=== PATIENT | male | born 1955 ===

== ENCOUNTER 2016-12-14 13:31 | Emergency (ER) | payer OTHER ==
[2016-12-14] MEDS ORDERED: Fluorescein Sodium TOPICAL* 1 MG TEST ONE (15:13)
[2016-12-14] MEDS ORDERED: BSS OPTH.SOL* BTL ONE (15:13)
[2016-12-14] MEDS ORDERED: Tetracaine 0.5% OPTH.SOL 15ML* BTL ONE (15:14)
--- NOTE | 2016-12-14 15:34 | UC ---
Eye Complaint HPI - HPI Summary HPI Summary: While kickboxing last night, felt surface of R eye get scratched. States blow was light, more of a scrape to the eye than anything. Feels/sees scratch, has tearing and light-sensitivity. No visual changes or deficit. Hx of cataract surgeries bilat by Dr. Amador. - History of Current Complaint Chief Complaint: UCEye Stated Complaint: EYE INJURY Time Seen by Provider: 12/14/16 15:11 Hx Obtained From: Patient Onset/Duration: Sudden Onset Timing: Constant Severity Initially: Moderate Severity Currently: Moderate Location of Injury: Globe Character: Foreign Body Sensation Aggravating Factor(s): Light Alleviating Factor(s): Nothing Associated Signs And Symptoms: Positive: Drainage (Clear). Negative: Vision Impairment Bilateral - Risk Factors Penetrating Injury Risk Factor: Negative Globe Rupture Risk Factors: Recent Trauma - Allergies/Home Medications Allergies/Adverse Reactions: Allergies Allergy/AdvReac Type Severity Reaction Status Date / Time No Known Allergies Allergy Verified 06/15/12 13:25 PMH/Surg Hx/FS Hx/Imm Hx Endocrine History Of: Reports: Diabetes Denies: Thyroid Disease Cardiovascular History Of: Reports: Hypertension Denies: Cardiac Disorders Respiratory History Of: Denies: COPD, Asthma GI/ History Of: Denies: Ulcer - Surgical History Surgical History: Yes Surgery Procedure, Year, and Place: 2005 & 2006: cataract surgeries. 207 - Right shoulder reconstruction. left shoulder - Family History Known Family History: Negative: Blood Disorder - Social History Alcohol Use: None Substance Use Type: None Smoking Status (MU): Never Smoked Tobacco Review of Systems Constitutional: Negative Skin: Negative Eyes: Drainage, Eye Redness ENT: Negative Respiratory: Negative Cardiovascular: Negative Gastrointestinal: Negative Genitourinary: Negative Motor: Negative Neurovascular: Negative Musculoskeletal: Negative Neurological: Negative Psychological: Negative All Other Systems Reviewed And Are Negative: Yes Physical Exam Triage Information Reviewed: Yes Appearance: Well-Appearing, Well-Nourished, Pain Distress - mild R eye Vital Signs: Initial Vital Signs Temp 98.7 F 12/14/16 14:35 Pulse 55 12/14/16 14:35 Resp 16 12/14/16 14:35 BP 160/63 12/14/16 14:35 Pulse Ox 100 12/14/16 14:35 Vital Signs Reviewed: Yes Eye Exam: Other - visible defect R cornea, fluoresces under fluorescein. Approx 4mm round area with bright linear uptake in the middle, near the center of cornea. No vitreous flow noted. Eyes: Positive: Conjunctiva Inflamed - bilat, L conjunctival hemorrhage, Other: - pt reports complete resolution of symptoms after instillation of tetracaine ENT Exam: Normal ENT: Positive: Normal ENT inspection, Hearing grossly normal, Pharynx normal Dental Exam: Normal Neck exam: Normal Neck: Positive: Supple, Nontender Respiratory Exam: Normal Respiratory: Positive: Chest non-tender, Lungs clear, Normal breath sounds, No respiratory distress, No accessory muscle use Cardiovascular Exam: Normal Cardiovascular: Positive: RRR, No Murmur Musculoskeletal Exam: Normal Neurological Exam: Normal Psychological Exam: Normal Skin Exam: Normal Eye Complaint Course/Dx - Differential Dx/Diagnosis Provider Diagnoses: R corneal abrasion. L conjunctival hemorrhage Discharge - Discharge Plan Condition: Stable Disposition: HOME Prescriptions: Ciprofloxacin 0.3% OPTH.BRETT* [Cipro 0.3% Opth*] 1 drop RIGHT EYE Q2H #5 ml Patient Education Materials: Corneal Abrasion (ED) Referrals: David Eagle MD [Medical Doctor] - 2 Days Additional Instructions: If you have any significant visual changes, severe eye pain, or otherwise suspect a problem, please go to an emergency department right away.
== END 2016-12-14 15:28 | disposition home or self-care (01) ==
LOC: UCEAST 13:31
DX: S05.01XA Injury of conjunctiva and corneal abrasion without foreign body, right eye, initial encounter (principal); H11.32 Conjunctival hemorrhage, left eye; E11.9 Type 2 diabetes mellitus without complications; I10 Essential (primary) hypertension; W50.4XXA Accidental scratch by another person, initial encounter; Y93.71 Activity, boxing
CPT/HCPCS: 99203; A9270-GY; G0463

== ENCOUNTER 2019-08-30 07:21 | Day surgery (SDC) | payer OTHER ==
[~2019-08-30 07:21] MED LIST: Buffered Lidocaine 1% SYRIN* 1 ML/SYRINGE INTRADERM ONE; Lactated Ringers 1000 ML Bag* 1,000 ML IV SCH
[2019-08-30] MEDS ORDERED: ceFAZolin 2 GM in NS PREMIX(*) 2 GM/100 ML BAG IVPB ONE (07:38)
[2019-08-30] MEDS ORDERED: Propofol* 10 MG/ML 20 ML BTL ONE (08:32)
[2019-08-30] MEDS ORDERED: Midazolam* 1 MG/ML 5 ML VIAL (5 MG) ONE (08:33)
[2019-08-30] MEDS ORDERED: fentaNYL* 50 MCG/ML 2 ML VIAL (100 MCG VIAL) ONE ×2 (08:33→10:10)
[2019-08-30] MEDS ORDERED: Rocuronium* 10 MG/ML VIAL ONE (08:33)
[2019-08-30] MEDS ORDERED: Lidocaine 2% PF * 5 ML VIAL ONE (08:37)
[2019-08-30] MEDS ORDERED: Dexamethasone IV* 4 MG/ML 1 ML (4 MG) ONE (08:42)
[2019-08-30] MEDS ORDERED: Naloxone* 0.4 MG/ML 1 ML VIAL IV PRN (09:17)
[2019-08-30] MEDS ORDERED: Ondansetron INJ* 2 MG/ML VIAL IV PRN (09:17)
[2019-08-30] MEDS: fentaNYL* 50 MCG/ML 2 ML VIAL (100 MCG VIAL) IV PRN ×4 (10:11→10:36)
[2019-08-30] MEDS ORDERED: oxyCODONE/Acetamin 5/325 MG* TAB ONE (10:27)
[2019-08-30] MEDS ORDERED: oxyCODONE TAB* 5 MG TAB ONE (10:27)
[2019-08-30] MEDS ORDERED: HYDROmorphone INJ1* 1 MG/ML SYRINGE ONE (11:04)
[2019-08-30] MEDS: HYDROmorphone INJ1* 1 MG/ML SYRINGE IV PRN ×5 (11:05→11:27)
[2019-08-30] MEDS ORDERED: Bupivacaine 0.5%* 50 ML MDV VIAL ONE (11:34)
[2019-08-30 12:07] VITALS: BP 163/65
--- NOTE | 2019-08-30 20:32 | OP ---
OPERATIVE REPORT: DATE OF OPERATION: 08/30/19 - SDS DATE OF : 55 SURGEON: Saúl Pace MD ANESTHESIOLOGIST: Kyaw Martin MD ANESTHESIA: General. AMBULANCE DRIVER PARAMEDIC: KAITY Mello PRE-OP DIAGNOSIS: Umbilical hernia. POST-OP DIAGNOSIS: Umbilical hernia. OPERATIVE PROCEDURE: Repair of umbilical hernia with mesh, robotic repair. INDICATIONS: Umbilical hernia. Risks of surgery included, but not limited to, bleeding, infection, injury to the bowel or other intraabdominal contents, recurrence of the hernia explained to the patient, who seemed to understand, agreed to the procedure, and all questions were answered. DESCRIPTION OF PROCEDURE: The patient was taken to the operating room and placed supine. Preoperative antibiotics were given. After the successful induction of general endotracheal anesthesia, the abdomen was prepped and draped in sterile fashion. Trocars were placed in the left upper quadrant and in a line down on the left side of the abdomen, two more 8-mm trocars were placed, robotic. The 5-mm trocar, bladeless Optiview that was initially placed was replaced with an 8-mm robotic trocar. The robot was brought in and docked. The peritoneum was taken down from left lateral to medial position and a large lipoma was removed from the umbilical hernia site as well as the sac. Sac was then sutured closed with a running 0 PDS locking suture. The mesh was brought in and sutured up in the anterior abdominal wall using the same 0 PDS locking suture. The peritoneum was closed with a 3-0 V-Loc. Both needles were removed. EBL minimal. Hemostasis was intact. The abdomen was once again scanned. No obvious injuries were noted. He tolerated the procedure well. He was extubated and taken to Recovery in stable condition. [id number]/[facility] #: [id number] MTDD
== END 2019-08-30 13:00 | disposition home or self-care (01) ==
LOC: OR 07:21
PROVIDERS: ATTEND Surgery
DX: K42.9 Umbilical hernia without obstruction or gangrene (principal); E78.5 Hyperlipidemia, unspecified; I25.10 Atherosclerotic heart disease of native coronary artery without angina pectoris; G47.33 Obstructive sleep apnea (adult) (pediatric); N18.9 Chronic kidney disease, unspecified; K21.9 Gastro-esophageal reflux disease without esophagitis; E11.9 Type 2 diabetes mellitus without complications; Z79.4 Long term (current) use of insulin; Z87.891 Personal history of nicotine dependence; I12.9 Hypertensive chronic kidney disease with stage 1 through stage 4 chronic kidney disease, or unspecified chronic kidney disease; I73.00 Raynaud's syndrome without gangrene
CPT/HCPCS: 49652; S2900; A9270-GY; C1781; J0690; J1100; J1170; J2250; J2704; J3010; J3490

== ENCOUNTER 2019-09-24 06:51 | Day surgery (SDC) | payer OTHER ==
--- NOTE | 2019-08-12 10:06 | HP ---
HISTORY AND PHYSICAL: DATE OF ADMISSION/SURGERY: 08/17/19 DATE OF OFFICE VISIT: 08/09/19 ATTENDING SURGEON: Dr. Susan Camacho.* (DICTATED BY ALBERTA GROSS) PROCEDURE: Left wrist carpal tunnel release. CHIEF COMPLAINT: Right wrist numbness and tingling. 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 He has had this trouble on and off for years but recently has got much worse. He does a lot of canoe racing and it bothers him when he is holding his paddle. Also, he is having a lot of trouble sleeping at night because of this problem. He does not recall any specific injury. He does not use braces. The pain ranges from 2 to 8/10 at its worst at night. He has been able to continue working. He has been diabetic for several years, the right bothers him more than the left and he would like to proceed with surgery starting with the right wrist. PAST MEDICAL HISTORY: Type 2 diabetes, chronic kidney disease, hypertension, Raynaud's, GERD, obstructive sleep apnea, hyperlipidemia, arthrosclerosis. PAST SURGICAL HISTORY: Bilateral rotator cuff repair. No known issues with anesthesia. MEDICATIONS: 1. Atorvastatin calcium 20 mg 1 p.o. daily. 2. Citalopram hydrobromide 40 mg 1 p.o. daily. 3. Doxazosin mesylate 2 mg 3 by mouth daily. 4. Lantus 100 units/mL 30 units sq at bedtime. 5. Humalog KwikPen 100 units/mL subcu as needed. 6. Modafinil 100 mg 1-1/2 tabs p.o. in the morning. 7. Procardia XL 90 mg 1 p.o. daily. 8. Omeprazole 20 mg 1 p.o. daily. 9. Valsartan hydrochlorothiazide 320/25 mg 1 p.o. daily. ALLERGIES: To BEE STINGS. No known drug allergies. FAMILY HISTORY: Positive for diabetes, coronary artery disease, hypertension, and stroke. Negative for DVT, PE, or any known bleeding or clotting disorders. 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 He lives at home with his spouse. He is a former smoker. He smoked a pack a day x20 years, he quit more than 10 years ago. He denies any recreational drug use. He denies alcohol use. REVIEW OF SYSTEMS: General: Negative for fevers, chills, night sweats, unexplained weight loss or gain. HEENT: Negative for headache, lightheadedness , syncopal episodes, or visual changes. Integumentary: Negative for abrasions , lesions, open wounds, or rashes. Cardiothoracic: Negative for chest pain, palpitations, or edema. Respiratory: Negative for shortness of breath with exertion, chronic cough, or wheezing. GI: Negative for nausea, vomiting, diarrhea, constipation, or GERD symptoms. : Negative for nocturia, urinary frequency, urgency, or previous history of urinary tract infections. Positive for chronic kidney disease. Musculoskeletal: Positive for bilateral wrist numbness and tingling. Negative for chronic or intermittent back pain or history of fractures. Neurologic: Positive for wrist numbness and tingling. Negative for history of seizures, stroke, or poor balance. Negative for anxiety or depression. Endocrine: Positive for diabetes. Negative for thyroid issues. Hematologic: Negative for easy bruising, anemia, bleeding disorders, or history of DVT or PE. ID: Negative for history of MRSA infection. Positive for history of hep C, the patient has completed treatment. Negative for HIV. PHYSICAL EXAMINATION GENERAL: A well-developed, well-nourished 63-year-old male, in no acute distress. Appropriate mood and affect. Appropriate dress and hygiene. VITAL SIGNS: Height 66 inches, weight 150 pounds. Pulse 67, BP 160/60, respirations 14, BMI 24.3. HEENT: Normocephalic, atraumatic. PERRLA. Extraocular movements intact. NECK: Supple. PULMONARY: Lungs are clear to auscultation bilaterally. No wheezes, rales, or rhonchi. CARDIO: Regular rate and rhythm. S1, S2 normal. No murmurs, rubs, or gallops. No edema. ABDOMEN: Positive bowel sounds. Soft and nontender. No organomegaly appreciated. NEUROLOGIC: A and O x3. Cranial nerves II through XII intact. Sensation is intact to light touch distally. Bilateral hands: Skin is intact with no abrasion or open wounds. There is no soft tissue swelling, erythema or bruising. There is no thenar wasting. He can fully flex and extend his fingers. He has some mild obvious degenerative changes in his fingers. He has positive Tinel's sign at both median nerves of the wrist. His thumb abduction strength is good. Neurovascularly intact. IMPRESSION: Bilateral carpal tunnel syndrome. PLAN: The patient is scheduled to undergo a right wrist carpal tunnel release on 08/17/[address] Camacho discussed the procedure as well as the risks and benefits with the patient and he elected to proceed. He will return to the office 10 days postop for followup and suture removal. Prescription for tramadol will be e-scribed to the patient's pharmacy for postoperative pain management with I-STOP being completed before prescribing. ALBERTA BECK [id number]/[facility] #: [id number] MTDD
--- NOTE | 2019-09-20 14:18 | HP ---
AMENDED REPORT NOW INCLUDES DESIGNATED COSIGNER - ESIGNED BEFORE ADJUSTMENTS PREOPERATIVE HISTORY AND PHYSICAL: DATE OF ADMISSION/SURGERY: 09/24/19 DATE OF OFFICE VISIT: 09/15/19 ATTENDING SURGEON: Susan Camacho MD * (DICTATED BY ALBERTA MORENO) PROCEDURE: Right wrist carpal tunnel release. 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 He complains of bilateral numbness and tingling in his hands, right is worse than left. He has had trouble on and off for years, but recently it has gotten much worse. He does a lot of canoe racing and it bothers him when he is holding his paddle. He is also having a lot of trouble sleeping at night because of his symptoms. He does not recall any specific injury. He has been diabetic for several years and also has subsequent kidney disease. He would like to proceed with surgical intervention for the right carpal tunnel at this time. PAST MEDICAL HISTORY: 1. Diabetes mellitus type 2. 2. Hypertension. 3. GERD. 4. Chronic kidney disease. 5. Raynaud's. 6. Obstructive sleep apnea. 7. Hyperlipidemia. 8. Atherosclerosis. PAST SURGICAL HISTORY: 1. Hernia repair. 2. Bilateral shoulder rotator cuff repair. 3. Bilateral cataract removal. No known issues with anesthesia. CURRENT MEDICATIONS: 1. Atorvastatin calcium 20 mg daily. 2. Citalopram hydrobromide 40 mg daily. 3. Doxazosin mesylate 2 mg 3 tabs daily. 4. Humalog KwikPen coverage as needed. 5. Hydralazine HCl 25 mg 1 tab 3 times a day. 6. Lantus 100 units/mL, 30 units subcu at bedtime. 7. Modafinil 100 mg 1-1/2 tabs daily. 8. Omeprazole 20 mg daily. 9. Procardia XL 90 mg daily. 10. Valsartan/hydrochlorothiazide 320/25 mg daily. ALLERGIES: No known drug allergies. The patient has an allergy to bee stings. FAMILY MEDICAL HISTORY: Diabetes, heart disease, hypertension, stroke. 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 He is a former smoker. He quit more than 10 years ago. Prior to that, he smoked a pack a day for 20 years. He denies recreational drug use. He denies alcohol use. REVIEW OF SYSTEMS: Negative for general, cephalic, cardiovascular, respiratory , GI, , other musculoskeletal, integumentary, endocrine, neurologic, and hematologic symptoms. Infectious Disease: Negative for MRSA, hepatitis C, HIV. PHYSICAL EXAMINATION GENERAL: A well-developed, well-nourished 64-year-old male, in no acute distress. VITAL SIGNS: Height 5 feet 6 inches, weight 148 pounds. Pulse rate 76, blood pressure 160/70. HEENT: Normocephalic, atraumatic. Pupils are equal, round, and reactive to light and accommodation. Extraocular movements are intact. Throat is clear. NECK: Supple. No palpable lymph nodes. PULMONARY: Lungs are clear to auscultation bilaterally. No wheezes, rales, or rhonchi. CARDIOVASCULAR: Regular rate and rhythm. S1, S2. No murmurs, rubs, or gallops. No edema. ABDOMEN: Positive bowel sounds. Soft, nontender. NEUROLOGICAL: Alert and oriented x3. Cranial nerves II through XII are intact. MUSCULOSKELETAL: On exam of his right hand, there is no thenar wasting. No soft tissue swelling, erythema, or bruising. He has good motion in his fingers and some mild obvious degenerative changes in his fingers. He has a positive Tinel's sign at the median nerve at the right wrist. Good strength with thumb abduction. Sensation is intact to light touch throughout the hand. IMPRESSION: Right carpal tunnel syndrome. PLAN: The patient is scheduled to undergo a right wrist carpal tunnel release with Dr. Camacho on 09/24/19. He will return to the office 10 days postop for followup and suture removal. A prescription for tramadol was e-scribed to the patient's pharmacy for postoperative pain management. ALBERTA MORENO [id number]/[facility] #: [id number] MTDAdriane
[~2019-09-24 06:51] MED LIST changes: +Famotidine IV* 10 MG/ML 2 ML (20 mg) IV ONE; +Famotidine IV* 10 MG/ML 2 ML (20 mg) ONE
[2019-09-24] MEDS ORDERED: Lidocaine 1% INJ* 10 MG/ML 30 ML SDV ONE (07:20)
[2019-09-24] MEDS ORDERED: Midazolam* 1 MG/ML 5 ML VIAL (5 MG) ONE (07:49)
[2019-09-24] MEDS ORDERED: Naloxone* 0.4 MG/ML 1 ML VIAL IV PRN (08:07)
[2019-09-24] MEDS ORDERED: Acetaminophen TAB* 325 MG PO PRN (08:07)
[2019-09-24] MEDS ORDERED: Propofol* 10 MG/ML 20 ML BTL ONE (08:28)
[2019-09-24] MEDS ORDERED: Ondansetron INJ* 2 MG/ML VIAL ONE (08:28)
[2019-09-24] MEDS ORDERED: Lidocaine 2% PF * 5 ML VIAL ONE (08:28)
[2019-09-24] MEDS ORDERED: Glycopyrrolate IV* 0.2 MG/ML 1 ML VIAL ONE ×2 (08:38→08:45)
[2019-09-24 09:17] VITALS: BP 136/62
[2019-09-24] MEDS ORDERED: Acetaminophen TAB* 325 MG ONE (09:18)
--- NOTE | 2019-09-24 23:07 | OP ---
DATE OF OPERATION: 09/24/19 [facility] DATE OF : 55 SURGEON: Susan Camacho MD PHYSICAL THERAPY DIRECTOR: ALBERTA Molina ANESTHESIA: Local MAC. PRE-OP DIAGNOSIS: Right carpal tunnel syndrome. POST-OP DIAGNOSIS: Right carpal tunnel syndrome. OPERATIVE PROCEDURE: Right carpal tunnel release. ESTIMATED BLOOD LOSS: Zero. TOURNIQUET TIME: Approximately 10 minutes. INDICATIONS FOR PROCEDURE: Slava is a 64-year-old male who has numbness and tingling in the median nerve distribution of his right hand. He presents for right carpal tunnel release. DESCRIPTION OF PROCEDURE: The patient was brought to the operating room, was given a sedation anesthetic and a local infiltration of 10 cc of 1% plain lidocaine in the palm of his right hand. The skin of his right hand and forearm was prepped and draped in the usual sterile fashion. The hand and forearm were exsanguinated and the tourniquet elevated to 250 mmHg. A longitudinal incision was made in the palm in line with the ring finger and we dissected through the subcutaneous tissue down to the transverse carpal ligament. The ligament was divided sharply with a knife and then more proximally with the scissors. The nerve was dissected free from the surrounding tissue and there was an area of moderate compression at the mid portion of the ligament. The wound was irrigated and the skin edges reapproximated with 4- 0 nylon suture. The wound was dressed with Xeroform, 4x4 , Webril, and an Neftali wrap. The patient tolerated the procedure well and was brought to the recovery room in good condition. [id number]/[facility] #: [id number] NORMA
== END 2019-09-24 09:41 | disposition home or self-care (01) ==
LOC: OREAST 06:51
PROVIDERS: ATTEND Orthopaedic Surgery
DX: G56.01 Carpal tunnel syndrome, right upper limb (principal); E11.22 Type 2 diabetes mellitus with diabetic chronic kidney disease; I12.9 Hypertensive chronic kidney disease with stage 1 through stage 4 chronic kidney disease, or unspecified chronic kidney disease; N18.3 Chronic kidney disease, stage 3 (moderate); I25.10 Atherosclerotic heart disease of native coronary artery without angina pectoris; I73.00 Raynaud's syndrome without gangrene; E78.5 Hyperlipidemia, unspecified; F41.9 Anxiety disorder, unspecified; G47.33 Obstructive sleep apnea (adult) (pediatric); K21.9 Gastro-esophageal reflux disease without esophagitis; Z87.891 Personal history of nicotine dependence; Z79.4 Long term (current) use of insulin; Z95.5 Presence of coronary angioplasty implant and graft
CPT/HCPCS: A9270-GY; J2250; J2405; J2704